=== PATIENT | female | born 1975 | race Two or more races ===

== ENCOUNTER 2024-07-10 08:07 | Outpatient (CLI) | payer OTHER ==
[2024-07-10 09:14] LABS: HEMATOCRIT 37.7 % (36.0-45.00); HEMOGLOBIN 12.7 g/dL (12.0-15.00); MEAN CELL VOLUME 90.8 fL (80.00-100.00); MEAN CORPUSCULAR HEMOGLOBIN 30.7 pg (27.00-32.0); MEAN CORPUSCULAR HGB CONC 33.8 g/dl (32.0-36.0); PLATELET COUNT 291 K/uL (150-450); RED BLOOD COUNT 4.15 M/uL (4.00-6.00); RED CELL DISTRIBUTION WIDTH 14.2 % (11.5-14.5)
[2024-07-10 09:15] LABS: URINE APPEARANCE Clear; URINE BILIRRUBIN Negative (NEGATIVE); URINE COLOR Yellow; URINE GLUCOSE Negative (NEGATIVE); URINE KETONE Negative (NEGATIVE); URINE LEUKOCYTE Negative; URINE NITRATE Negative; URINE PROTEIN Negative (NEGATIVE); URINE UROBILINOGEN 0.2 E.U./dl
[2024-07-10 09:18] LABS: URINE BACTERIA 90.5 uL (0.0-1933); URINE EPITHELIAL CELLS 5.5 uL (0.0-38.8); URINE RBC 17.5 uL (0.0-20.8)
[2024-07-10 10:24] LABS: ALBUMIN 3.6 gm/dL (3.4-5.0); BILIRUBIN TOTAL 0.44 mg/dL (0.3-1.2); CALCIUM 8.8 mg/dL (8.5-10.1); CHOL HDL RATIO 5.1 (0-5.0); CREATININE SERUM 0.56 mg/dL (0.55-1.02); GFR 115.54; GLOBULINA 3.1 G/DL (2.4-3.5); POTASSIUM 4.3 mEq/L (3.5-5.1); TOTAL PROTEIN 6.7 gm/dL (6.4-8.2); TSH 2.61 uIU/mL (0.358-3.74); URINE BLOOD TRACE; URINE WBC 1.7 uL (0.0-23.2)
== END 2024-07-10 08:23 | disposition home or self-care (01) ==
LOC: LAB 08:07
DX: N18.9 Chronic kidney disease, unspecified (principal); D64.9 Anemia, unspecified; E55.9 Vitamin D deficiency, unspecified; E11.69 Type 2 diabetes mellitus with other specified complication; E78.2 Mixed hyperlipidemia; Z12.11 Encounter for screening for malignant neoplasm of colon; E20.819 Hypoparathyroidism due to impaired parathyroid hormone secretion, unspecified; N39.0 Urinary tract infection, site not specified

== ENCOUNTER → 2025-02-24 09:03 | Outpatient (CLI) | payer OTHER ==
[2025-02-24 09:55] LABS: URINE APPEARANCE Clear; URINE BILIRRUBIN Negative (NEGATIVE); URINE BLOOD Small; URINE COLOR Yellow; URINE GLUCOSE Negative (NEGATIVE); URINE KETONE Negative (NEGATIVE); URINE LEUKOCYTE Negative; URINE NITRATE Negative; URINE PROTEIN Negative (NEGATIVE); URINE UROBILINOGEN 0.2 E.U./dl
[2025-02-24 09:57] LABS: URINE BACTERIA 130.7 uL (0.0-1933); URINE EPITHELIAL CELLS 12.1 uL (0.0-38.8); URINE RBC 70.2 uL (0.0-20.8); URINE WBC 2.7 uL (0.0-23.2)
[2025-02-24 10:02] LABS: BASO % 0.8 % (0.1-1.2); EOS # 0.14 (0.04-0.54); EOS % 2.2 % (0.7-7.0); LYMPH # 1.96 (1.18-3.74); LYMPH % 31.4 % (19.3-53.1); MEAN PLATELET VOLUME 10.00 fl (9.4-12.4); MONO # 0.34 (0.24-0.82); MONO % 5.4 % (4.7-12.5); NEUT # 3.73 (1.56-6.13); NEUT % 59.9 % (34.0-71.1); RED CELL DISTRIBUTION WIDTH 13.2 % (11.6-14.4)
[2025-02-24 10:27] LABS: URINE CAST 0.14 uL (0.0-1.40)
[2025-02-24 10:59] LABS: ALT/SGPT 23.0 U/L (12-78); AST/SGOT 16.0 U/L (15-37); BILIRUBIN TOTAL 0.55 mg/dL (0.3-1.2); BUN CREA RATIO 23.0 (7.0-25.0); CREATININE SERUM 0.56 mg/dL (0.55-1.02); GFR 115.06; GLOBULINA 3.3 G/DL (2.4-3.5); GLUCOSE FASTING 100.0 mg/dL (65-100); HDL 50.0 mg/dl (40-60); OSMOLALITY SERUM 283.0 MOSM/KG (275-295); TSH 2.5 uIU/mL (0.358-3.74); VLDL 76.0 (0-39)
[2025-02-24 11:05] LABS: CHOL HDL RATIO 5.7 (0-5.0); LDL 161.0 mg/dl (0-130)
[2025-02-25 10:07] LABS: PROGESTERONA 0.5 ng/mL (.)
== END | disposition home or self-care (01) ==
LOC: LAB 09:03
DX: D50.0 Iron deficiency anemia secondary to blood loss (chronic) (principal); E03.9 Hypothyroidism, unspecified; R87.1 Abnormal level of hormones in specimens from female genital organs; I11.9 Hypertensive heart disease without heart failure; Z00.00 Encounter for general adult medical examination without abnormal findings; E11.69 Type 2 diabetes mellitus with other specified complication; E78.00 Pure hypercholesterolemia, unspecified; Z12.11 Encounter for screening for malignant neoplasm of colon; E21.5 Disorder of parathyroid gland, unspecified; N39.0 Urinary tract infection, site not specified